=== PATIENT | female | born 1960 | race Caucasian/White ===

== ENCOUNTER 2022-04-09 10:00 | Emergency (ER) | payer OTHER ==
[~2022-04-09] VITALS: Ht 167.6 cm; Wt 75.7 kg
[2022-04-09] MEDS ORDERED: NORFLEX100MG PO (12:20)
[2022-04-09] MEDS ORDERED: KETO10TA2 PO (12:20)
== END 2022-04-09 12:32 | disposition home or self-care (01) ==
LOC: ER 10:00
DX: M75.31 Calcific tendinitis of right shoulder (principal)